=== PATIENT | male | born 1965 | race African-American/Black ===

== ENCOUNTER 2018-01-30 14:17 | Inpatient (IN) | payer OTHER ==
[2018-01-30 15:30] VITALS: BMI 214.3
--- NOTE | 2018-01-30 17:26 | HP ---
CIWA Score - CIWA Score Nausea/Vomitin-No Nausea/No Vomiting Muscle Tremors: 2 Anxiety: 1-Mildly Anxious Agitation: 2 Paroxysmal Sweats: No Perspiration Orientation: 2-Disoriented Date<2 days Tacttile Disturbances: 3-Moderate Itch/Numb/Burn Auditory Disturbances: 0-None Visual Disturbances: 0-None Headache: 2-Mild CIWA-Ar Total Score: 12 Admission ROS S - HPI Chief Complaint: ETOH withdrawal symptoms and crack/marijuana dependence. Allergies/Adverse Reactions: Allergies Allergy/AdvReac Type Severity Reaction Status Date / Time doxycycline Allergy Severe Verified 01/30/18 16:36 Fish Containing Products Allergy Severe Verified 01/30/18 16:36 History of Present Illness: Patient presents ETOH withdrawal symptoms and crack/marijuana dependence. Patient started drinking at age 2-3 pints of liquor daily. Last drink was last night. Patient denies hx of seizures but does have history of blackouts. Patient also smokes marijuana and crack since age 26. Last time he used crack was last night. Amount he uses varies. Last time he used marijuana was days ago. Patient attempted detox at [facility] 4 months ago. First attempt of detox here at [facility]. PMH includes asthma, depression and anxiety. Last SI/HI and suicide attempts. Exam Limitations: No Limitations - Ebola screening Have you traveled outside of the country in the last 21 days: No Have you had contact with anyone from an Ebola affected area: No Have you been sick,other than usual withdrawal symptoms: No Do you have a fever: No - Review of Systems Constitutional: Chills, Changes in sleep, Unintentional Wgt. Loss EENT: denies: Blurred Vision, Tearing, Hearing Loss Respiratory: denies: Cough, Shortness of Breath Cardiac: denies: Chest Pain, Palpitations GI: reports: Nausea, Poor Appetite, Poor Fluid Intake : reports: No Symptoms Reported Musculoskeletal: reports: Back Pain, Muscle Pain Integumentary: denies: Rash, Sweating Neuro: reports: Headache, Numbness, Tingling, Tremors Endocrine: reports: Unexplained Weight Loss. denies: Increased Urine Hematology: reports: No Symptoms Reported Psychiatric: reports: Anxious, Depressed Patient History - Patient Medical History Hx Asthma: No Hx Chronic Obstructive Pulmonary Disease (COPD): Yes (chronic bronchitis.) Hx Cancer: No Hx Cardiac Disorders: No Hx Congestive Heart Failure: No Hx Hypertension: No Hx Hypercholesterolemia: No Hx Pacemaker: No HX Cerebrovascular Accident: No Hx Seizures: No Hx Diabetes: No Hx Gastrointestinal Disorders: No Hx Liver Disease: No Hx Genitourinary Disorders: No Hx Sexually Transmitted Disorders: Yes (pt was tx for syphillis.) Hx Renal Disease (ESRD): No Hx Thyroid Disease: No Hx Human Immunodeficiency Virus (HIV): No Hx Hepatitis C: No Hx Depression: Yes Hx Suicide Attempt: No Hx Bipolar Disorder: No Hx Schizophrenia: No - Patient Surgical History Past Surgical History: Yes Hx Abdominal Surgery: Yes (hernia repair) Other Surgical History: R inguinal hernia repair. Anesthesia Reaction: No - PPD History Previous Implant?: Yes Documented Results: Negative w/o proof Implanted On Prior [facility] Admission?: No PPD to be Administered?: Yes - Smoking Cessation Smoking history: Current every day smoker Have you smoked in the past 12 months: Yes Aproximately how many cigarettes per day: 10 Hx Chewing Tobacco Use: No Initiated information on smoking cessation: Yes 'Breaking Loose' booklet given: 01/30/18 - Substance & Tx. History Hx Alcohol Use: Yes Hx Substance Use: Yes Substance Use Type: Alcohol, Cocaine, Marijuana Hx Substance Use Treatment: Yes - Substances Abused Alcohol Route: Oral Frequency: Daily Amount used: 3-4 22 oz beers Age of first use: 15 Date of Last Use: 01/29/18 Crack Route: Smoking Frequency: Daily Amount used: $25-50 Age of first use: 26 Date of Last Use: 01/29/18 Family Disease History - Family Disease History Family Disease History: Diabetes: Mother () Admission Physical Exam S - Vital Signs Vital Signs: Vital Signs - 24 hr 01/30/18 15:23 Temperature 98.0 F Pulse Rate 56 L Respiratory 18 Rate Blood Pressure 115/73 - Physical General Appearance: Yes: Thin, Tremorous, Anxious HEENTM: Yes: EOMI, Hearing grossly Normal, Normal ENT Inspection, Normocephalic , Normal Voice, WU, Pharynx Normal Respiratory: Yes: Chest Non-Tender, Lungs Clear, Normal Breath Sounds, No Respiratory Distress, No Accessory Muscle Use Neck: Yes: No masses,lesions,Nodules, Supple Breast: Yes: Breast Exam Deferred Cardiology: Yes: Regular Rhythm, Regular Rate, S1, S2 Abdominal: Yes: Normal Bowel Sounds, Non Tender, Soft Genitourinary: Yes: Within Normal Limits Back: Yes: Normal Inspection, Muscle Spasm Musculoskeletal: Yes: full range of Motion, Gait Steady, Back pain, Muscle Pain Extremities: Yes: Normal Inspection, Normal Range of Motion, Non-Tender, Tremors 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, Fully Oriented, Alert, Motor Strength 5/5, Depressed Affect Integumentary: Yes: Normal Color, Dry, Warm Lymphatic: Yes: Within Normal Limits - Diagnostic (1) Alcohol dependence with uncomplicated withdrawal Current Visit: Yes Status: Acute (2) Cocaine dependence Current Visit: Yes Status: Acute Qualifiers: Substance use status: uncomplicated Qualified Code(s): F14.20 - Cocaine dependence, uncomplicated (3) Nicotine dependence Current Visit: Yes Status: Acute Qualifiers: Nicotine product type: cigarettes (4) Depressed affect Current Visit: Yes Status: Suspected (5) Weight loss Current Visit: Yes Status: Acute (6) Marijuana dependence Current Visit: Yes Status: Acute Cleared for Admission [facility] - Detox or Rehab [facility] Level of Care: Medically Managed Detox Regimen/Protocol: Librium [facility] Breath Alcohol Content Breath Alcohol Content: 0 Urine Drug Screen - Results Drug Screen Negative: No Urine Drug Screen Results: BHARATH-Cocaine
[2018-01-30] MEDS ORDERED: chlordiazePOXIDE HCL 25 MG CAPSULE PO PRN (17:31)
[2018-01-30] MEDS ORDERED: IBUPROFEN 400 MG TABLET (FP) PO PRN (17:32)
[2018-01-30] MEDS ORDERED: LOPERAMIDE HCL 2 MG CAPSULE PO PRN (17:32)
[2018-01-30] MEDS ORDERED: P-EPHED 60MG/TRIPROLIDI 2.5MG TABLET PO PRN (17:32)
[2018-01-30] MEDS ORDERED: hydrOXYzine PAMOATE 50 MG CAPSULE (FP) PO PRN (17:32)
[2018-01-30] MEDS ORDERED: MENTHOL/PHENOL 1 EACH UD MM PRN (17:32)
[2018-01-30] MEDS ORDERED: guaiFENesin/D-METHORPHAN HB 10 ML UNIT-DOSE CUPS PO PRN (17:32)
[2018-01-30] MEDS ORDERED: ACETAMINOPHEN 325 MG TABLET (FP) PO PRN (17:32)
[2018-01-30] MEDS ORDERED: MAGNESIUM CITRATE 300 ML BOTTLE PO PRN (17:32)
[2018-01-30] MEDS ORDERED: MAGNESIUM HYDROX 2400MG/30ML ORAL SUSPENSION 30 ML CUP PO PRN (17:32)
[2018-01-30] MEDS ORDERED: MAG HYDROX/AL HYDROX/SIMETH 30 ML UNIT-DOSE CUP PO PRN (17:32)
[2018-01-30] MEDS ORDERED: chlordiazePOXIDE HCL 25 MG CAPSULE PO ONE (18:00)
[2018-01-30] MEDS: MELATONIN 5 MG TABLETS PO PRN (22:44)
[2018-01-30] MEDS: THIAMINE HCL 100 MG TABLET (FP) PO SCH (22:44)
[2018-01-30] MEDS: chlordiazePOXIDE HCL 25 MG CAPSULE PO SCH (22:44)
[2018-01-31 01:22] LABS: URINE APPEARANCE CLEAR; URINE BILIRUBIN NEGATIVE (<2.0 mg/dL); URINE COLOR YELLOW; URINE GLUCOSE (UA) NEGATIVE (NEGATIVE); URINE KETONE NEGATIVE (NEGATIVE); URINE LEUK ESTERASE NEGATIVE (NEGATIVE); URINE NITRITE NEGATIVE (NEGATIVE); URINE PROTEIN NEGATIVE (NEGATIVE); URINE UROBILINOGEN NEGATIVE mg/dL (0.2-1.0)
[2018-01-31] MEDS: chlordiazePOXIDE HCL 25 MG CAPSULE PO SCH ×4 (06:48→22:51)
[2018-01-31 10:02] LABS: HEMATOCRIT 36.5 % (35.4-49); HEMOGLOBIN 11.6 GM/dL (11.7-16.9); MCHC 31.9 g/dl (32.0-35.9); MEAN CELL VOLUME 81.5 fl (80-96); MEAN PLT VOLUME 9.3 fl (7.5-11.1); PLATELET COUNT 212 K/MM3 (134-434); RBC 4.48 M/mm3 (4.00-5.60); RDW 15.4 % (11.9-15.9); WHITE BLOOD COUNT 5.8 K/mm3 (4.0-10.0)
[2018-01-31 10:21] LABS: CHLORIDE 110 mmol/L (98-107); POTASSIUM 3.8 mmol/L (3.5-5.1); SODIUM 145 mmol/L (136-145)
[2018-01-31 10:42] LABS: ALK PHOS 57 U/L (45-117); ANION GAP 7 MMOL/L (8-16); BILIRUBIN,TOTAL 0.2 mg/dL (0.2-1.0); BLOOD UREA NITROGEN 18 mg/dL (7-18); CALCIUM 8.4 mg/dL (8.5-10.1); CO2 28 mmol/L (21-32); CREATININE 1.1 mg/dL (0.7-1.3); GLUCOSE,RANDOM 82 mg/dL (74-106); SGOT/AST 14 U/L (15-37); SGPT/ALT 23 U/L (12-78); TOT PROT 5.4 g/dl (6.4-8.2)
[2018-01-31] MEDS: PRENATAL VITAMINS W/ FOLIC ACID TABLET (FP) PO SCH (11:08)
[2018-01-31] MEDS ORDERED: ONDANSETRON *ODT* 4 MG TABLET SL PRN (14:14)
--- NOTE | 2018-01-31 14:51 | CONSULT ---
[facility] Psychiatric Consult - Data Date of interview: 01/31/18 Admission source: [facility] Identifying data: First admission to [facility] for this 52 y/o AA male seeking detox treatment on for alcohol,cannabis and cocaine (crack) dependence.Patient is ,no children,domiciled,unemployed and collecting unemployment benefits. Substance Abuse History: Confirmed by the patient in this interview.Smoking history: Current every day smoker. Have you smoked in the past 12 months: Yes. Aproximately how many cigarettes per day: 10. Hx Chewing Tobacco Use: No. Initiated information on smoking cessation: Yes. 'Breaking Loose' booklet given : 01/30/18. - Substance & Tx. History. Hx Alcohol Use: Yes. Hx Substance Use : Yes. Substance Use Type: Alcohol, Cocaine, Marijuana. Hx Substance Use Treatment: Yes. - Substances Abused. Alcohol. Route: Oral. Frequency: Daily. Amount used: 3-4 22 oz beers. Age of first use: 15. Date of Last Use: 01/29/18. Crack. Route: Smoking. Frequency: Daily. Amount used: $25-50. Age of first use: 26. Date of Last Use: 01/29/18 Medical History: COPD,antecedent of syphilis and a history of right inguinal herniorraphy. Psychiatric History: Patient reports a history of psychiatric hospitalizations but he remembers only his committment at [facility].Duiagnosed with MDD.Medications not recalled.No OPD care reported.Mr Sandoval denies history of suicide attempts. Physical/Sexual Abuse/Trauma History: No history. Additional Comment: Urine Drug Screen Results: BHARATH-Cocaine.Noted. Mental Status Exam - Mental Status Exam Alert and Oriented to: Time, Place, Person Cognitive Function: Good Patient Appearance: Well Groomed Mood: Nervous, Withdrawn Affect: Mood Congruent Patient Behavior: Sedated (mildly sedated,drowsy), Fatigued, Cooperative Speech Pattern: Delayed, Slurred Voice Loudness: Moderately Soft/Quiet Thought Process: Goal Oriented Thought Disorder: Not Present Hallucinations: Denies Suicidal Ideation: Denies Homicidal Ideation: Denies Insight/Judgement: Poor Sleep: Well Appetite: Good Muscle strength/Tone: Normal Gait/Station: Other (unsteady gait) Psychiatric Findings - Problem List ([place] 1, 2,3) (1) Alcohol dependence with uncomplicated withdrawal Current Visit: Yes Status: Acute (2) Cocaine dependence Current Visit: Yes Status: Acute Qualifiers: Substance use status: uncomplicated Qualified Code(s): F14.20 - Cocaine dependence, uncomplicated (3) Marijuana dependence Current Visit: Yes Status: Acute (4) Nicotine dependence Current Visit: Yes Status: Acute Qualifiers: Nicotine product type: cigarettes - Initial Treatment Plan Initial Treatment Plan: Psychoeducation.Detoxification.Falls precautions.Observation.
--- NOTE | 2018-01-31 16:10 | PN ---
[facility] CIWA - CIWA Score Nausea/Vomitin Muscle Tremors: 3 Anxiety: 3 Agitation: 1-Slight > Activity Paroxysmal Sweats: No Perspiration Orientation: 2-Disoriented Date<2 days Tacttile Disturbances: 0-None Auditory Disturbances: 2-Mild Harshness/Frighten Visual Disturbances: 2-Mild Sensitivity Headache: 0-None Present CIWA-Ar Total Score: 16 [facility] Progress Note (SOAP) Subjective: Interrupted Sleep, Tremors, Nausea, Fatigue. Objective: PATIENT A & O X 2 (UNCERTAIN ABOUT CURRENT DAY / DATE). PATIENT OBSERVED AMBULATING ON UNIT. NO ACUTE DISTRESS. 01/31/18 16:09 Vital Signs Temperature 97.4 F L 01/31/18 14:19 Pulse Rate 54 L 01/31/18 14:19 Respiratory Rate 18 01/31/18 14:19 Blood Pressure 109/72 01/31/18 14:19 O2 Sat by Pulse Oximetry (%) Laboratory Tests 01/31/18 01/31/18 01/31/18 00:03 08:00 08:00 WBC 5.8 RBC 4.48 Hgb 11.6 L Hct 36.5 MCV 81.5 MCH 26.0 MCHC 31.9 L RDW 15.4 Plt Count 212 MPV 9.3 Sodium 145 Potassium 3.8 Chloride 110 H Carbon Dioxide 28 Anion Gap 7 L BUN 18 Creatinine 1.1 Creat Clearance w eGFR > 60 Random Glucose 82 Calcium 8.4 L Total Bilirubin 0.2 AST 14 L ALT 23 Alkaline Phosphatase 57 Total Protein 5.4 L Albumin 3.0 L Urine Color Yellow Urine Appearance Clear Urine pH 5.0 Ur Specific [place] 1.017 Urine Protein Negative Urine Glucose (UA) Negative Urine Ketones Negative Urine Blood Negative Urine Nitrite Negative Urine Bilirubin Negative Urine Urobilinogen Negative Ur Leukocyte Esterase Negative RPR Titer 01/31/18 08:00 WBC RBC Hgb Hct MCV MCH MCHC RDW Plt Count MPV Sodium Potassium Chloride Carbon Dioxide Anion Gap BUN Creatinine Creat Clearance w eGFR Random Glucose Calcium Total Bilirubin AST ALT Alkaline Phosphatase Total Protein Albumin Urine Color Urine Appearance Urine pH Ur Specific [place] Urine Protein Urine Glucose (UA) Urine Ketones Urine Blood Urine Nitrite Urine Bilirubin Urine Urobilinogen Ur Leukocyte Esterase RPR Titer Nonreactive LABS NOTED. Assessment: 01/31/18 16:09 WITHDRAWAL SYMPTOMS. Plan: CONTINUE DETOX. INCREASE DAILY PO FLUID INTAKE. PRN ZOFRAN SL FOR NAUSEA.
--- NOTE | 2018-01-31 19:08 | EKG ---
Test Reason : Blood Pressure : / mmHG Vent. Rate : 047 BPM Atrial Rate : 047 BPM P-R Int : 184 ms QRS Dur : 082 ms QT Int : 426 ms P-R-T Axes : 063 026 021 degrees QTc Int : 377 ms SINUS BRADYCARDIA OTHERWISE NORMAL ECG NO PREVIOUS ECGS AVAILABLE Confirmed by ANTONIO SHABAZZ MD ([id number]) on 01/31/2018 7:07:53 PM Referred By: Confirmed By:ANTONIO SHABAZZ MD
[2018-01-31] MEDS ORDERED: RANITIDINE HCL 150 MG TABLET (FP) PO ONE (21:41)
[2018-01-31] MEDS: THIAMINE HCL 100 MG TABLET (FP) PO SCH (22:51)
[2018-02-01] MEDS: chlordiazePOXIDE HCL 25 MG CAPSULE PO SCH ×3 (07:10→17:58)
[2018-02-01] MEDS: PRENATAL VITAMINS W/ FOLIC ACID TABLET (FP) PO SCH (10:31)
--- NOTE | 2018-02-01 14:27 | PN ---
S CIWA - CIWA Score Nausea/Vomitin Muscle Tremors: 3 Anxiety: 3 Agitation: 3 Paroxysmal Sweats: 3 Orientation: 0-Oriented Tacttile Disturbances: 1-Very Mild Itch/Numbness Auditory Disturbances: 0-None Visual Disturbances: 0-None Headache: 1-Very Mild CIWA-Ar Total Score: 16 [facility] Progress Note (SOAP) Subjective: Sweating, interrupted sleep Objective: 02/01/18 14:26 Last Vital Signs Temp Pulse Resp BP Pulse Ox 98.4 F 86 18 100/72 02/01/18 09:36 02/01/18 09:36 02/01/18 09:36 02/01/18 09:36 Laboratory Tests 01/31/18 01/31/18 01/31/18 00:03 08:00 08:00 WBC 5.8 RBC 4.48 Hgb 11.6 L Hct 36.5 MCV 81.5 MCH 26.0 MCHC 31.9 L RDW 15.4 Plt Count 212 MPV 9.3 Sodium 145 Potassium 3.8 Chloride 110 H Carbon Dioxide 28 Anion Gap 7 L BUN 18 Creatinine 1.1 Creat Clearance w eGFR > 60 Random Glucose 82 Calcium 8.4 L Total Bilirubin 0.2 AST 14 L ALT 23 Alkaline Phosphatase 57 Total Protein 5.4 L Albumin 3.0 L Urine Color Yellow Urine Appearance Clear Urine pH 5.0 Ur Specific [place] 1.017 Urine Protein Negative Urine Glucose (UA) Negative Urine Ketones Negative Urine Blood Negative Urine Nitrite Negative Urine Bilirubin Negative Urine Urobilinogen Negative Ur Leukocyte Esterase Negative RPR Titer 01/31/18 08:00 WBC RBC Hgb Hct MCV MCH MCHC RDW Plt Count MPV Sodium Potassium Chloride Carbon Dioxide Anion Gap BUN Creatinine Creat Clearance w eGFR Random Glucose Calcium Total Bilirubin AST ALT Alkaline Phosphatase Total Protein Albumin Urine Color Urine Appearance Urine pH Ur Specific [place] Urine Protein Urine Glucose (UA) Urine Ketones Urine Blood Urine Nitrite Urine Bilirubin Urine Urobilinogen Ur Leukocyte Esterase RPR Titer Nonreactive Labs reviewed Assessment: 02/01/18 14:26 Withdrawal symptoms Plan: Continue detox Encouraged PO water hydration
[2018-02-01] MEDS: NICOTINE POLACRILEX 2 MG GUM BC PRN (17:59)
[2018-02-01] MEDS: THIAMINE HCL 100 MG TABLET (FP) PO SCH (22:27)
[2018-02-01] MEDS: MELATONIN 5 MG TABLETS PO PRN (22:27)
[2018-02-01] MEDS: chlordiazePOXIDE 5 MG CAPSULE PO SCH (22:28)
[2018-02-02] MEDS: chlordiazePOXIDE 5 MG CAPSULE PO SCH ×3 (05:39→18:02)
[2018-02-02] MEDS: PRENATAL VITAMINS W/ FOLIC ACID TABLET (FP) PO SCH (10:14)
[2018-02-02] MEDS: NICOTINE POLACRILEX 2 MG GUM BC PRN ×2 (10:16→14:13)
--- NOTE | 2018-02-02 13:59 | PN ---
[facility] Progress Note (SOAP) Subjective: sweats shakes Sleep disturbance Objective: 02/02/18 13:57 Sleeping in room Arousable to verbal stimuli Vital Signs Temperature 98.1 F 02/02/18 10:03 Pulse Rate 59 L 02/02/18 10:03 Respiratory Rate 18 02/02/18 10:03 Blood Pressure 110/64 02/02/18 10:03 O2 Sat by Pulse Oximetry (%) Laboratory Last Values WBC 5.8 K/mm3 (4.0-10.0) 01/31/18 08:00 RBC 4.48 M/mm3 (4.00-5.60) 01/31/18 08:00 Hgb 11.6 GM/dL (11.7-16.9) L 01/31/18 08:00 Hct 36.5 % (35.4-49) 01/31/18 08:00 MCV 81.5 fl (80-96) 01/31/18 08:00 MCH 26.0 pg (25.7-33.7) 01/31/18 08:00 MCHC 31.9 g/dl (32.0-35.9) L 01/31/18 08:00 RDW 15.4 % (11.9-15.9) 01/31/18 08:00 Plt Count 212 K/MM3 (134-434) 01/31/18 08:00 MPV 9.3 fl (7.5-11.1) 01/31/18 08:00 Sodium 145 mmol/L (136-145) 01/31/18 08:00 Potassium 3.8 mmol/L (3.5-5.1) 01/31/18 08:00 Chloride 110 mmol/L (98-107) H 01/31/18 08:00 Carbon Dioxide 28 mmol/L (21-32) 01/31/18 08:00 Anion Gap 7 MMOL/L (8-16) L 01/31/18 08:00 BUN 18 mg/dL (7-18) 01/31/18 08:00 Creatinine 1.1 mg/dL (0.7-1.3) 01/31/18 08:00 Creat Clearance w eGFR > 60 (>60) 01/31/18 08:00 Random Glucose 82 mg/dL (74-106) 01/31/18 08:00 Calcium 8.4 mg/dL (8.5-10.1) L 01/31/18 08:00 Total Bilirubin 0.2 mg/dL (0.2-1.0) 01/31/18 08:00 AST 14 U/L (15-37) L 01/31/18 08:00 ALT 23 U/L (12-78) 01/31/18 08:00 Alkaline Phosphatase 57 U/L (45-117) 01/31/18 08:00 Total Protein 5.4 g/dl (6.4-8.2) L 01/31/18 08:00 Albumin 3.0 g/dl (3.4-5.0) L 01/31/18 08:00 Urine Color Yellow 01/31/18 00:03 Urine Appearance Clear 01/31/18 00:03 Urine pH 5.0 (5.0-8.0) 01/31/18 00:03 Ur Specific [place] 1.017 (1.001-1.035) 01/31/18 00:03 Urine Protein Negative (NEGATIVE) 01/31/18 00:03 Urine Glucose (UA) Negative (NEGATIVE) 01/31/18 00:03 Urine Ketones Negative (NEGATIVE) 01/31/18 00:03 Urine Blood Negative (NEGATIVE) 01/31/18 00:03 Urine Nitrite Negative (NEGATIVE) 01/31/18 00:03 Urine Bilirubin Negative (<2.0 mg/dL) 01/31/18 00:03 Urine Urobilinogen Negative mg/dL (0.2-1.0) 01/31/18 00:03 Ur Leukocyte Esterase Negative (NEGATIVE) 01/31/18 00:03 RPR Titer Nonreactive (NONREACTIVE) 01/31/18 08:00 Assessment: 02/02/18 13:59 withdrawal sx Plan: continue detox
[2018-02-02] MEDS: MELATONIN 5 MG TABLETS PO PRN (22:15)
[2018-02-02] MEDS: THIAMINE HCL 100 MG TABLET (FP) PO SCH (22:15)
[2018-02-02] MEDS: chlordiazePOXIDE HCL 10 MG CAPSULE PO SCH (22:16)
[2018-02-03] MEDS: chlordiazePOXIDE HCL 10 MG CAPSULE PO SCH (05:47)
[2018-02-03 06:05] VITALS: BP 110/60; PULSE 54; TEMP 97.5
--- NOTE | 2018-02-03 16:33 | PN ---
[facility] Progress Note (SOAP) Subjective: Pre-Discharge medical assessment unable to be done due to the fact that Patient Left Detox Unit early in AM prior to arrival of GEOS[employer]IAL [employer]S INTEGRATOR. Objective: 02/03/18 16:32 Vital Signs Temperature 97.5 F L 02/03/18 06:05 Pulse Rate 54 L 02/03/18 06:05 Respiratory Rate 18 02/03/18 06:05 Blood Pressure 110/60 02/03/18 06:05 O2 Sat by Pulse Oximetry (%) Laboratory Tests 01/31/18 01/31/18 01/31/18 00:03 08:00 08:00 WBC 5.8 RBC 4.48 Hgb 11.6 L Hct 36.5 MCV 81.5 MCH 26.0 MCHC 31.9 L RDW 15.4 Plt Count 212 MPV 9.3 Sodium 145 Potassium 3.8 Chloride 110 H Carbon Dioxide 28 Anion Gap 7 L BUN 18 Creatinine 1.1 Creat Clearance w eGFR > 60 Random Glucose 82 Calcium 8.4 L Total Bilirubin 0.2 AST 14 L ALT 23 Alkaline Phosphatase 57 Total Protein 5.4 L Albumin 3.0 L Urine Color Yellow Urine Appearance Clear Urine pH 5.0 Ur Specific [place] 1.017 Urine Protein Negative Urine Glucose (UA) Negative Urine Ketones Negative Urine Blood Negative Urine Nitrite Negative Urine Bilirubin Negative Urine Urobilinogen Negative Ur Leukocyte Esterase Negative RPR Titer 01/31/18 08:00 WBC RBC Hgb Hct MCV MCH MCHC RDW Plt Count MPV Sodium Potassium Chloride Carbon Dioxide Anion Gap BUN Creatinine Creat Clearance w eGFR Random Glucose Calcium Total Bilirubin AST ALT Alkaline Phosphatase Total Protein Albumin Urine Color Urine Appearance Urine pH Ur Specific [place] Urine Protein Urine Glucose (UA) Urine Ketones Urine Blood Urine Nitrite Urine Bilirubin Urine Urobilinogen Ur Leukocyte Esterase RPR Titer Nonreactive LABS NOTED. Assessment: 02/03/18 16:32 COMPLETION OF DETOX REGIMEN. Plan: PATIENT SCHEDULED FOR DISCHARGE FROM DETOX UNIT TODAY.
--- NOTE | 2018-02-03 16:36 | DS ---
[facility] Detox Discharge Summary Admission Date: 01/30/18 Discharge Date: 02/03/18 - History Present History: Alcohol Dependence, Cocaine Dependence Additional Comments: PATIENT GOING TO [facility] ([place] FOR AFTERCARE. Pertinent Past History: Weight Loss, Nicotine Dependence, C.O.P.D. (Chronic Bronchitis), History of Depression. - Physical Exam Results Vital Signs: Vital Signs Temperature 97.5 F L 02/03/18 06:05 Pulse Rate 54 L 02/03/18 06:05 Respiratory Rate 18 02/03/18 06:05 Blood Pressure 110/60 02/03/18 06:05 O2 Sat by Pulse Oximetry (%) Pertinent Admission Physical Exam Findings: WITHDRAWAL SYMPTOMS. Laboratory Tests 01/31/18 01/31/18 01/31/18 00:03 08:00 08:00 WBC 5.8 RBC 4.48 Hgb 11.6 L Hct 36.5 MCV 81.5 MCH 26.0 MCHC 31.9 L RDW 15.4 Plt Count 212 MPV 9.3 Sodium 145 Potassium 3.8 Chloride 110 H Carbon Dioxide 28 Anion Gap 7 L BUN 18 Creatinine 1.1 Creat Clearance w eGFR > 60 Random Glucose 82 Calcium 8.4 L Total Bilirubin 0.2 AST 14 L ALT 23 Alkaline Phosphatase 57 Total Protein 5.4 L Albumin 3.0 L Urine Color Yellow Urine Appearance Clear Urine pH 5.0 Ur Specific [place] 1.017 Urine Protein Negative Urine Glucose (UA) Negative Urine Ketones Negative Urine Blood Negative Urine Nitrite Negative Urine Bilirubin Negative Urine Urobilinogen Negative Ur Leukocyte Esterase Negative RPR Titer 01/31/18 08:00 WBC RBC Hgb Hct MCV MCH MCHC RDW Plt Count MPV Sodium Potassium Chloride Carbon Dioxide Anion Gap BUN Creatinine Creat Clearance w eGFR Random Glucose Calcium Total Bilirubin AST ALT Alkaline Phosphatase Total Protein Albumin Urine Color Urine Appearance Urine pH Ur Specific [place] Urine Protein Urine Glucose (UA) Urine Ketones Urine Blood Urine Nitrite Urine Bilirubin Urine Urobilinogen Ur Leukocyte Esterase RPR Titer Nonreactive LABS NOTED. - Treatment Hospital Course: Detox Protocol Followed, Detoxed Safely, Responded well, Discharged Condition Good Patient has Accepted a Rehab Referral to: PATIENT GOING TO [facility] ([place] - Medication Discharge Medications: Ambulatory Orders NK [No Known Home Medication] 01/30/18 - Diagnosis (1) Alcohol dependence with uncomplicated withdrawal Status: Acute (2) Cocaine dependence Status: Chronic Qualifiers: Substance use status: uncomplicated Qualified Code(s): F14.20 - Cocaine dependence, uncomplicated (3) Marijuana dependence Status: Acute (4) Nicotine dependence Status: Chronic Qualifiers: Nicotine product type: cigarettes Substance use status: uncomplicated Qualified Code(s): F17.210 - Nicotine dependence, cigarettes, uncomplicated (5) Weight loss Status: Acute (6) Depressed affect Status: Suspected - AMA Did Patient Leave Against Medical Advice: No
== END 2018-02-03 07:05 | disposition home or self-care (01) | DRG 774 ==
LOC: YASAS 14:17 → Y3N 17:13
PROVIDERS: ADMIT Surgery; ATTEND Surgery
PROC: HZ2ZZZZ Detoxification Services for Substance Abuse Treatment (ICD-10-PCS; principal; 2018-01-30)
DX: F10.230 Alcohol dependence with withdrawal, uncomplicated (principal); F14.20 Cocaine dependence, uncomplicated; F12.20 Cannabis dependence, uncomplicated; F17.210 Nicotine dependence, cigarettes, uncomplicated; R45.89 Other symptoms and signs involving emotional state; R63.4 Abnormal weight loss; Z68.21 Body mass index [BMI] 21.0-21.9, adult; J44.9 Chronic obstructive pulmonary disease, unspecified
CPT/HCPCS: 36415; 80053; 81003; 85027; 86593; 93005; 93010

== ENCOUNTER 2022-05-01 09:16 | Inpatient (IN) | payer OTHER ==
[2022-05-01 10:18] VITALS: BMI 23.1
[2022-05-01] MEDS ORDERED: chlordiazePOXIDE HCL 25 MG CAPSULE PO PRN (10:36)
[2022-05-01] MEDS ORDERED: ONDANSETRON *ODT* 4 MG TABLET SL PRN (10:36)
[2022-05-01] MEDS ORDERED: hydrOXYzine PAMOATE 25 MG CAPSULE (FP) PO PRN (10:36)
[2022-05-01] MEDS ORDERED: MAGNESIUM HYDROX 2400MG/30ML ORAL SUSPENSION 30 ML CUP PO PRN (10:36)
[2022-05-01] MEDS ORDERED: P-EPHED 60MG/TRIPROLIDI 2.5MG TABLET PO PRN (10:36)
[2022-05-01] MEDS ORDERED: ACETAMINOPHEN 325 MG TABLET (FP) PO PRN ×2 (10:36)
[2022-05-01] MEDS ORDERED: LOPERAMIDE HCL 2 MG CAPSULE PO PRN (10:36)
[2022-05-01] MEDS ORDERED: IBUPROFEN 400 MG TABLET (FP) PO PRN (10:36)
[2022-05-01] MEDS ORDERED: POLYETHYLENE GLYCOL (HEALTHYLAX) 3350 17 GM PACKET PO PRN (10:36)
[2022-05-01] MEDS ORDERED: NICOTINE POLACRILEX 4 MG GUM BUC PRN (10:36)
[2022-05-01] MEDS ORDERED: NICOTINE 10 MG CARTRIDGE (INHALER) IH PRN (10:36)
[2022-05-01] MEDS ORDERED: IBUPROFEN 600 MG TABLET (FP) PO PRN (10:36)
[2022-05-01] MEDS ORDERED: NICOTINE 21 MG/24 HOURS TOPICAL PATCH TD PRN (10:36)
[2022-05-01] MEDS ORDERED: BENZOCAINE/MENTHOL (CHLORASEPTIC ) LOZENGE MM PRN (10:36)
[2022-05-01] MEDS ORDERED: DICYCLOMINE HCL 10 MG CAPSULE PO PRN (10:36)
[2022-05-01] MEDS ORDERED: BISMUTH SUBSALICYLATE 262 MG/15 ML BTL PO PRN (10:36)
[2022-05-01] MEDS ORDERED: MAG HYDROX/AL HYDROX/SIMETH 30 ML UNIT-DOSE CUP PO PRN (10:36)
[2022-05-01] MEDS ORDERED: PRENATAL VITAMINS W/ FOLIC ACID TABLET (FP) PO SCH (10:45)
[2022-05-01] MEDS ORDERED: chlordiazePOXIDE HCL 25 MG CAPSULE ONE (11:13)
[2022-05-01] MEDS: METHOCARBAMOL 500 MG TABLET PO PRN (11:52)
[2022-05-01] MEDS ORDERED: METHOCARBAMOL 500 MG TABLET ONE (11:53)
[2022-05-01] MEDS ORDERED: chlordiazePOXIDE HCL 25 MG CAPSULE PO ONE (11:54)
[2022-05-01] MEDS: chlordiazePOXIDE HCL 25 MG CAPSULE PO SCH ×2 (18:23→22:56)
[2022-05-01] MEDS ORDERED: MELATONIN 5 MG TABLETS PO SCH (22:00)
[2022-05-01] MEDS ORDERED: SUVOREXANT 10 MG TABLET PO PRN (22:00)
[2022-05-01] MEDS: THIAMINE HCL 100 MG TABLET (FP) PO SCH (22:42)
[2022-05-02] MEDS: chlordiazePOXIDE HCL 25 MG CAPSULE PO SCH ×4 (05:39→22:55)
[2022-05-02] MEDS: PRENATAL VITAMINS W/ FOLIC ACID TABLET (FP) PO SCH (11:10)
[2022-05-02] MEDS: METHOCARBAMOL 500 MG TABLET PO PRN (17:30)
[2022-05-02] MEDS: THIAMINE HCL 100 MG TABLET (FP) PO SCH (22:55)
[2022-05-03] MEDS: chlordiazePOXIDE HCL 25 MG CAPSULE PO SCH ×4 (05:14→22:43)
[2022-05-03] MEDS: PRENATAL VITAMINS W/ FOLIC ACID TABLET (FP) PO SCH (10:37)
[2022-05-03 11:13] LABS: HEMATOCRIT 38.8 % (35.4-49); HEMOGLOBIN 12.2 GM/dL (11.7-16.9); MCH 25.8 pg (25.7-33.7); MCHC 31.3 g/dl (32.0-35.9); MEAN CELL VOLUME 82.4 fl (80-96); PLATELET COUNT 263 10^3/uL (134-434); RBC 4.71 M/mm3 (4.00-5.60); RDW 15.6 % (11.9-15.9); WHITE BLOOD COUNT 5.6 K/mm3 (4.0-10.0)
[2022-05-03 11:22] LABS: ALBUMIN 3.3 g/dl (3.4-5.0); BLOOD UREA NITROGEN 17.7 mg/dL (7-18)
[2022-05-03 11:25] LABS: CREATININE 1.4 mg/dL (0.55-1.3)
[2022-05-03 11:26] LABS: BILIRUBIN,TOTAL 0.5 mg/dL (0.2-1); TOT PROT 6.1 g/dl (6.4-8.2)
[2022-05-03] MEDS: THIAMINE HCL 100 MG TABLET (FP) PO SCH (22:43)
[2022-05-04] MEDS ORDERED: chlordiazePOXIDE HCL 10 MG CAPSULE PO PRN
[2022-05-04] MEDS ORDERED: chlordiazePOXIDE HCL 10 MG CAPSULE PO SCH (05:00)
[2022-05-04 08:46] VITALS: BP 125/69; PULSE 69; RESP 17; TEMP 97.3
[2022-05-05] MEDS ORDERED: chlordiazePOXIDE HCL 10 MG CAPSULE PO SCH (05:00)
[2022-05-06] MEDS ORDERED: chlordiazePOXIDE HCL 10 MG CAPSULE PO ONE (05:00)
== END 2022-05-04 09:10 | disposition left against medical advice (07) | DRG 770 ==
LOC: YASAS 09:16 → Y6N 11:29
PROVIDERS: ADMIT Allergy & Immunology; ATTEND Surgery
PROC: HZ2ZZZZ Detoxification Services for Substance Abuse Treatment (ICD-10-PCS; principal; 2022-05-01)
DX: F10.230 Alcohol dependence with withdrawal, uncomplicated (principal); F14.20 Cocaine dependence, uncomplicated; F12.20 Cannabis dependence, uncomplicated; F17.210 Nicotine dependence, cigarettes, uncomplicated; F31.81 Bipolar II disorder; F25.1 Schizoaffective disorder, depressive type; J44.9 Chronic obstructive pulmonary disease, unspecified; Z85.46 Personal history of malignant neoplasm of prostate; Z86.19 Personal history of other infectious and parasitic diseases; Z88.1 Allergy status to other antibiotic agents; Z91.013 Allergy to seafood
CPT/HCPCS: 36415; 80053; 85027; 86593; 86780; C9803-CS; U0003; U0005

== ENCOUNTER 2022-08-15 11:17 | Inpatient (IN) | payer OTHER ==
[2022-08-15 11:59] VITALS: BMI 24.5
[2022-08-15] MEDS ORDERED: IBUPROFEN 600 MG TABLET (FP) PO PRN (12:43)
[2022-08-15] MEDS ORDERED: NALOXONE HCL (KLOXXADO) 8 MG SPRAY NS PRN (12:43)
[2022-08-15] MEDS ORDERED: POLYETHYLENE GLYCOL (HEALTHYLAX) 3350 17 GM PACKET PO PRN (12:43)
[2022-08-15] MEDS ORDERED: BENZOCAINE/MENTHOL (CHLORASEPTIC ) LOZENGE MM PRN (12:43)
[2022-08-15] MEDS ORDERED: NICOTINE 10 MG CARTRIDGE (INHALER) IH PRN (12:43)
[2022-08-15] MEDS ORDERED: hydrOXYzine PAMOATE 25 MG CAPSULE (FP) PO PRN (12:43)
[2022-08-15] MEDS ORDERED: diazePAM 5 MG TABLET PO PRN (12:43)
[2022-08-15] MEDS ORDERED: MAGNESIUM HYDROX 2400MG/30ML ORAL SUSPENSION 30 ML CUP PO PRN (12:43)
[2022-08-15] MEDS ORDERED: ACETAMINOPHEN 325 MG TABLET (FP) PO PRN ×2 (12:43)
[2022-08-15] MEDS ORDERED: LOPERAMIDE HCL 2 MG CAPSULE PO PRN (12:43)
[2022-08-15] MEDS ORDERED: MAG HYDROX/AL HYDROX/SIMETH 30 ML UNIT-DOSE CUP PO PRN (12:43)
[2022-08-15] MEDS ORDERED: DICYCLOMINE HCL 10 MG CAPSULE PO PRN (12:43)
[2022-08-15] MEDS ORDERED: BISMUTH SUBSALICYLATE 524 MG/30 ML PO PRN (12:43)
[2022-08-15] MEDS ORDERED: IBUPROFEN 400 MG TABLET (FP) PO PRN (12:43)
[2022-08-15] MEDS ORDERED: ONDANSETRON *ODT* 4 MG TABLET SL PRN (12:43)
[2022-08-15] MEDS ORDERED: NICOTINE 14 MG/24 HOURS TOPICAL PATCH TD ONE (15:02)
[2022-08-15] MEDS ORDERED: PRENATAL VITAMINS W/ FOLIC ACID TABLET (FP) PO ONE (15:03)
[2022-08-15] MEDS: NICOTINE 14 MG/24 HOURS TOPICAL PATCH TD SCH (15:07)
[2022-08-15] MEDS: PRENATAL VITAMINS W/ FOLIC ACID TABLET (FP) PO SCH (15:07)
[2022-08-15] MEDS: METHOCARBAMOL 500 MG TABLET PO PRN (15:21)
[2022-08-15] MEDS: diazePAM 5 MG TABLET PO SCH ×2 (17:37→22:28)
[2022-08-15] MEDS: MELATONIN 5 MG TABLETS PO SCH (22:28)
[2022-08-15] MEDS: THIAMINE HCL 100 MG TABLET (FP) PO SCH (22:28)
[2022-08-16] MEDS: diazePAM 5 MG TABLET PO SCH ×4 (05:50→22:51)
[2022-08-16] MEDS: PRENATAL VITAMINS W/ FOLIC ACID TABLET (FP) PO SCH (10:07)
[2022-08-16] MEDS: NICOTINE 14 MG/24 HOURS TOPICAL PATCH TD SCH (10:10)
[2022-08-16 11:02] LABS: BLOOD UREA NITROGEN 21.9 mg/dL (7-18); CALCIUM 8.3 mg/dL (8.5-10.1)
[2022-08-16 11:03] LABS: ALBUMIN 3.2 g/dl (3.4-5.0)
[2022-08-16 11:05] LABS: CREATININE 1.2 mg/dL (0.55-1.3); HEMOGLOBIN 11.8 GM/dL (11.7-16.9); MCH 26.5 pg (25.7-33.7); MCHC 32.1 g/dl (32.0-35.9); MEAN CELL VOLUME 82.7 fl (80-96); MEAN PLT VOLUME 8.8 fl (7.5-11.1); PLATELET COUNT 256 10^3/uL (134-434); RBC 4.47 M/mm3 (4.00-5.60); RDW 15.8 % (11.9-15.9); WHITE BLOOD COUNT 6.3 K/mm3 (4.0-10.0)
[2022-08-16 11:07] LABS: BILIRUBIN,TOTAL 0.4 mg/dL (0.2-1); TOT PROT 5.9 g/dl (6.4-8.2)
[2022-08-16] MEDS: MELATONIN 5 MG TABLETS PO SCH (22:50)
[2022-08-16] MEDS: THIAMINE HCL 100 MG TABLET (FP) PO SCH (22:50)
[2022-08-17] MEDS: diazePAM 5 MG TABLET PO SCH ×3 (06:29→22:48)
[2022-08-17] MEDS: PRENATAL VITAMINS W/ FOLIC ACID TABLET (FP) PO SCH (10:45)
[2022-08-17] MEDS: NICOTINE 14 MG/24 HOURS TOPICAL PATCH TD SCH (10:45)
[2022-08-17] MEDS: LACTULOSE 20 GM/30 ML UDC (FOR ORAL USE ONLY) PO SCH ×2 (13:32→22:47)
[2022-08-17] MEDS: METHOCARBAMOL 500 MG TABLET PO PRN (17:51)
[2022-08-17 17:55] VITALS: RESP 18
[2022-08-17] MEDS: MELATONIN 5 MG TABLETS PO SCH (22:47)
[2022-08-17] MEDS: THIAMINE HCL 100 MG TABLET (FP) PO SCH (22:48)
[2022-08-18] MEDS ORDERED: diazePAM 5 MG TABLET PO SCH (06:00)
[2022-08-18] MEDS: LACTULOSE 20 GM/30 ML UDC (FOR ORAL USE ONLY) PO SCH ×2 (06:21→13:25)
[2022-08-18 06:36] VITALS: BP 114/76; PULSE 69; TEMP 97.4
[2022-08-18] MEDS: NICOTINE 14 MG/24 HOURS TOPICAL PATCH TD SCH (10:58)
[2022-08-18] MEDS: PRENATAL VITAMINS W/ FOLIC ACID TABLET (FP) PO SCH (10:58)
[2022-08-19] MEDS ORDERED: diazePAM 5 MG TABLET PO ONE (06:00)
== END 2022-08-18 15:26 | disposition home or self-care (01) | DRG 774 ==
LOC: YASAS 11:17 → Y6N 13:57
PROVIDERS: ADMIT Allergy & Immunology; ATTEND Surgery
PROC: HZ2ZZZZ Detoxification Services for Substance Abuse Treatment (ICD-10-PCS; principal; 2022-08-15)
DX: F10.20 Alcohol dependence, uncomplicated (principal); F14.20 Cocaine dependence, uncomplicated; F12.20 Cannabis dependence, uncomplicated; F17.210 Nicotine dependence, cigarettes, uncomplicated; F10.282 Alcohol dependence with alcohol-induced sleep disorder; F10.24 Alcohol dependence with alcohol-induced mood disorder; F25.1 Schizoaffective disorder, depressive type; F32.A Depression, unspecified; F90.9 Attention-deficit hyperactivity disorder, unspecified type; J44.9 Chronic obstructive pulmonary disease, unspecified; Z85.46 Personal history of malignant neoplasm of prostate; Z90.79 Acquired absence of other genital organ(s); Z86.19 Personal history of other infectious and parasitic diseases; Z88.1 Allergy status to other antibiotic agents; Z91.013 Allergy to seafood
CPT/HCPCS: 36415; 80053; 82140; 85027; 86593; 86780; 87811; C9803-CS; U0003; U0005

== ENCOUNTER 2023-01-15 11:43 | Inpatient (IN) | payer OTHER ==
[2023-01-15 12:09] VITALS: BMI 21.9
[2023-01-15] MEDS ORDERED: NALOXONE HCL (KLOXXADO) 8 MG SPRAY NS PRN (13:48)
[2023-01-15] MEDS ORDERED: ACETAMINOPHEN 325 MG TABLET (FP) PO PRN (13:48)
[2023-01-15] MEDS ORDERED: DICYCLOMINE HCL 10 MG CAPSULE PO PRN (13:48)
[2023-01-15] MEDS ORDERED: MAGNESIUM HYDROX 2400MG/30ML ORAL SUSPENSION 30 ML CUP PO PRN (13:48)
[2023-01-15] MEDS ORDERED: BISMUTH SUBSALICYLATE 262 MG/15 ML BTL PO PRN (13:48)
[2023-01-15] MEDS ORDERED: NICOTINE POLACRILEX 2 MG GUM BUC PRN (13:48)
[2023-01-15] MEDS ORDERED: MAG HYDROX/AL HYDROX/SIMETH 30 ML UNIT-DOSE CUP PO PRN (13:48)
[2023-01-15] MEDS ORDERED: POLYETHYLENE GLYCOL (HEALTHYLAX) 3350 17 GM PACKET PO PRN (13:48)
[2023-01-15] MEDS ORDERED: METHOCARBAMOL 500 MG TABLET PO PRN (13:48)
[2023-01-15] MEDS ORDERED: IBUPROFEN 400 MG TABLET (FP) PO PRN (13:48)
[2023-01-15] MEDS ORDERED: ONDANSETRON *ODT* 4 MG TABLET SL PRN (13:48)
[2023-01-15] MEDS ORDERED: guaiFENesin 600 MG TABLET.ER (FP) PO PRN (13:48)
[2023-01-15] MEDS ORDERED: BENZONATATE 200 MG CAPSULE PO PRN (13:48)
[2023-01-15] MEDS ORDERED: IBUPROFEN 600 MG TABLET (FP) PO PRN (13:48)
[2023-01-15] MEDS ORDERED: BENZOCAINE/MENTHOL (CHLORASEPTIC ) LOZENGE MM PRN (13:48)
[2023-01-15] MEDS ORDERED: LOPERAMIDE HCL 2 MG CAPSULE PO PRN (13:48)
[2023-01-15] MEDS ORDERED: hydrOXYzine PAMOATE 25 MG CAPSULE (FP) PO PRN (13:48)
[2023-01-15] MEDS ORDERED: NALOXONE HCL 0.4 MG/ML VIAL IM PRN (13:48)
[2023-01-15] MEDS ORDERED: chlordiazePOXIDE HCL 25 MG CAPSULE PO PRN (13:54)
[2023-01-15] MEDS: chlordiazePOXIDE HCL 25 MG CAPSULE PO SCH ×2 (17:36→22:25)
[2023-01-15] MEDS: THIAMINE HCL 100 MG TABLET (FP) PO SCH (22:25)
[2023-01-15] MEDS: MELATONIN 5 MG TABLETS PO SCH (22:25)
[2023-01-16] MEDS: chlordiazePOXIDE HCL 25 MG CAPSULE PO SCH ×4 (05:40→22:22)
[2023-01-16] MEDS: NICOTINE 14 MG/24 HOURS TOPICAL PATCH TD SCH (10:37)
[2023-01-16] MEDS: PRENATAL VITAMINS W/ FOLIC ACID TABLET (FP) PO SCH (10:38)
[2023-01-16 11:29] LABS: POTASSIUM 4.4 mmol/L (3.5-5.1)
[2023-01-16 11:31] LABS: ALBUMIN 3.2 g/dl (3.4-5.0); BLOOD UREA NITROGEN 21.6 mg/dL (7-18); CALCIUM 8.6 mg/dL (8.5-10.1)
[2023-01-16 11:34] LABS: CREATININE 1.3 mg/dL (0.55-1.3)
[2023-01-16 11:36] LABS: BILIRUBIN,TOTAL 0.2 mg/dL (0.2-1); TOT PROT 6.2 g/dl (6.4-8.2)
[2023-01-16 11:38] LABS: HEMATOCRIT 36.7 % (35.4-49); HEMOGLOBIN 11.8 GM/dL (11.7-16.9); MCH 26.5 pg (25.7-33.7); MCHC 32.2 g/dl (32.0-35.9); MEAN CELL VOLUME 82.3 fl (80-96); MEAN PLT VOLUME 8.9 fl (7.5-11.1); PLATELET COUNT 258 10^3/uL (134-434); RBC 4.46 M/mm3 (4.00-5.60); RDW 16.3 % (11.9-15.9); WHITE BLOOD COUNT 4.6 K/mm3 (4.0-10.0)
[2023-01-16] MEDS: THIAMINE HCL 100 MG TABLET (FP) PO SCH (22:24)
[2023-01-16] MEDS: MELATONIN 5 MG TABLETS PO SCH (22:24)
[2023-01-17] MEDS: chlordiazePOXIDE HCL 25 MG CAPSULE PO SCH ×4 (06:09→22:14)
[2023-01-17] MEDS: PRENATAL VITAMINS W/ FOLIC ACID TABLET (FP) PO SCH (10:31)
[2023-01-17] MEDS: VENLAFAXINE HCL 37.5 MG E.R. CAPSULE PO SCH (10:31)
[2023-01-17] MEDS: NICOTINE 14 MG/24 HOURS TOPICAL PATCH TD SCH (10:31)
[2023-01-17] MEDS: ARIPiprazole 5 MG TABLET PO SCH (10:31)
[2023-01-17] MEDS: THIAMINE HCL 100 MG TABLET (FP) PO SCH (22:13)
[2023-01-17] MEDS: MELATONIN 5 MG TABLETS PO SCH (22:13)
[2023-01-18] MEDS ORDERED: chlordiazePOXIDE HCL 10 MG CAPSULE PO PRN
[2023-01-18] MEDS: chlordiazePOXIDE HCL 10 MG CAPSULE PO SCH ×4 (05:59→22:23)
[2023-01-18] MEDS: ARIPiprazole 5 MG TABLET PO SCH (10:59)
[2023-01-18] MEDS: NICOTINE 14 MG/24 HOURS TOPICAL PATCH TD SCH (11:00)
[2023-01-18] MEDS: VENLAFAXINE HCL 37.5 MG E.R. CAPSULE PO SCH (11:00)
[2023-01-18] MEDS: PRENATAL VITAMINS W/ FOLIC ACID TABLET (FP) PO SCH (11:00)
[2023-01-18] MEDS: MELATONIN 5 MG TABLETS PO SCH (22:22)
[2023-01-18] MEDS: THIAMINE HCL 100 MG TABLET (FP) PO SCH (22:23)
[2023-01-19] MEDS ORDERED: chlordiazePOXIDE HCL 10 MG CAPSULE PO SCH (05:00)
[2023-01-19 06:28] VITALS: TEMP 98
[2023-01-19 09:37] VITALS: BP 130/80; PULSE 67; RESP 18
[2023-01-20] MEDS ORDERED: chlordiazePOXIDE HCL 10 MG CAPSULE PO ONE (05:00)
== END 2023-01-19 09:20 | disposition home or self-care (01) | DRG 774 ==
LOC: YASAS 11:43 → Y3N 15:15
PROVIDERS: ADMIT Allergy & Immunology; ATTEND Allergy & Immunology
PROC: HZ2ZZZZ Detoxification Services for Substance Abuse Treatment (ICD-10-PCS; principal; 2023-01-15)
DX: F10.230 Alcohol dependence with withdrawal, uncomplicated (principal); F14.20 Cocaine dependence, uncomplicated; F17.210 Nicotine dependence, cigarettes, uncomplicated; F31.9 Bipolar disorder, unspecified; F20.9 Schizophrenia, unspecified; F19.24 Other psychoactive substance dependence with psychoactive substance-induced mood disorder; J44.9 Chronic obstructive pulmonary disease, unspecified; Z85.46 Personal history of malignant neoplasm of prostate; Z90.79 Acquired absence of other genital organ(s); Z88.1 Allergy status to other antibiotic agents; Z91.013 Allergy to seafood; Z91.199 Patient's noncompliance with other medical treatment and regimen due to unspecified reason
CPT/HCPCS: 36415; 80053; 85027; 86593; 86780; 87635; 87811

== ENCOUNTER 2023-03-31 10:32 | Inpatient (IN) | payer OTHER ==
[2023-03-31 12:04] VITALS: BMI 21.2
[2023-03-31] MEDS ORDERED: IBUPROFEN 400 MG TABLET (FP) PO PRN (12:24)
[2023-03-31] MEDS ORDERED: ONDANSETRON *ODT* 4 MG TABLET SL PRN (12:24)
[2023-03-31] MEDS ORDERED: IBUPROFEN 600 MG TABLET (FP) PO PRN (12:24)
[2023-03-31] MEDS ORDERED: LOPERAMIDE HCL 2 MG CAPSULE PO PRN (12:24)
[2023-03-31] MEDS ORDERED: NICOTINE POLACRILEX 2 MG GUM BUC PRN (12:24)
[2023-03-31] MEDS ORDERED: guaiFENesin 600 MG TABLET.ER (FP) PO PRN (12:24)
[2023-03-31] MEDS ORDERED: hydrOXYzine PAMOATE 25 MG CAPSULE (FP) PO PRN (12:24)
[2023-03-31] MEDS ORDERED: POLYETHYLENE GLYCOL (HEALTHYLAX) 3350 17 GM PACKET PO PRN (12:24)
[2023-03-31] MEDS ORDERED: BENZOCAINE/MENTHOL (CHLORASEPTIC ) LOZENGE MM PRN (12:24)
[2023-03-31] MEDS ORDERED: MAGNESIUM HYDROX 2400MG/30ML ORAL SUSPENSION 30 ML CUP PO PRN (12:24)
[2023-03-31] MEDS ORDERED: ACETAMINOPHEN 325 MG TABLET (FP) PO PRN (12:24)
[2023-03-31] MEDS ORDERED: NALOXONE HCL 0.4 MG/ML VIAL IM PRN (12:24)
[2023-03-31] MEDS ORDERED: NALOXONE HCL (KLOXXADO) 8 MG SPRAY NS PRN (12:24)
[2023-03-31] MEDS ORDERED: METHOCARBAMOL 500 MG TABLET PO PRN (12:24)
[2023-03-31] MEDS ORDERED: BISMUTH SUBSALICYLATE 262 MG/15 ML BTL PO PRN (12:24)
[2023-03-31] MEDS ORDERED: BENZONATATE 200 MG CAPSULE PO PRN (12:24)
[2023-03-31] MEDS ORDERED: MAG HYDROX/AL HYDROX/SIMETH 30 ML UNIT-DOSE CUP PO PRN (12:24)
[2023-03-31] MEDS: THIAMINE HCL 100 MG TABLET (FP) PO SCH (22:26)
[2023-03-31] MEDS: MELATONIN 5 MG TABLETS PO SCH (22:26)
[2023-04-01] MEDS: NICOTINE 14 MG/24 HOURS TOPICAL PATCH TD SCH (09:44)
[2023-04-01] MEDS: PRENATAL VITAMINS W/ FOLIC ACID TABLET (FP) PO SCH (09:44)
[2023-04-01] MEDS ORDERED: diazePAM 5 MG TABLET PO PRN (10:32)
[2023-04-01] MEDS: diazePAM 5 MG TABLET PO SCH ×3 (11:26→22:11)
[2023-04-01 11:54] LABS: POTASSIUM 4.2 mmol/L (3.5-5.1)
[2023-04-01 11:57] LABS: HEMATOCRIT 35.5 % (35.4-49); HEMOGLOBIN 11.8 GM/dL (11.7-16.9); MCH 26.6 pg (25.7-33.7); MCHC 33.3 g/dl (32.0-35.9); MEAN CELL VOLUME 79.7 fl (80-96); MEAN PLT VOLUME 9.4 fl (7.5-11.1); PLATELET COUNT 243 10^3/uL (134-434); RBC 4.46 M/mm3 (4.00-5.60); RDW 14.7 % (11.9-15.9); WHITE BLOOD COUNT 5.2 K/mm3 (4.0-10.0)
[2023-04-01 12:23] LABS: CALCIUM 8.5 mg/dL (8.5-10.1)
[2023-04-01 12:24] LABS: ALBUMIN 3.6 g/dl (3.4-5.0); BLOOD UREA NITROGEN 33.9 mg/dL (7-18)
[2023-04-01 12:27] LABS: BILIRUBIN,TOTAL 0.2 mg/dL (0.2-1); CREATININE 1.4 mg/dL (0.55-1.3); TOT PROT 6.7 g/dl (6.4-8.2)
[2023-04-01] MEDS: MELATONIN 5 MG TABLETS PO SCH (22:11)
[2023-04-01] MEDS: THIAMINE HCL 100 MG TABLET (FP) PO SCH (22:11)
[2023-04-02] MEDS: diazePAM 5 MG TABLET PO SCH ×4 (05:38→22:56)
[2023-04-02] MEDS: VENLAFAXINE HCL 37.5 MG TABLET PO SCH (10:34)
[2023-04-02] MEDS: NICOTINE 14 MG/24 HOURS TOPICAL PATCH TD SCH (10:34)
[2023-04-02] MEDS: ARIPiprazole 5 MG TABLET PO SCH (10:34)
[2023-04-02] MEDS: PRENATAL VITAMINS W/ FOLIC ACID TABLET (FP) PO SCH (10:34)
[2023-04-02] MEDS: THIAMINE HCL 100 MG TABLET (FP) PO SCH (22:56)
[2023-04-02] MEDS: MELATONIN 5 MG TABLETS PO SCH (22:56)
[2023-04-03] MEDS: diazePAM 5 MG TABLET PO SCH ×3 (05:18→23:47)
[2023-04-03] MEDS: PRENATAL VITAMINS W/ FOLIC ACID TABLET (FP) PO SCH (10:27)
[2023-04-03] MEDS: NICOTINE 14 MG/24 HOURS TOPICAL PATCH TD SCH (10:27)
[2023-04-03] MEDS: ARIPiprazole 5 MG TABLET PO SCH (10:27)
[2023-04-03] MEDS: VENLAFAXINE HCL 37.5 MG TABLET PO SCH (10:27)
[2023-04-03 12:35] LABS: BLOOD UREA NITROGEN 21.8 mg/dL (7-18)
[2023-04-03 12:38] LABS: CREATININE 1.2 mg/dL (0.55-1.3)
[2023-04-03] MEDS: THIAMINE HCL 100 MG TABLET (FP) PO SCH (23:47)
[2023-04-03] MEDS: MELATONIN 5 MG TABLETS PO SCH (23:47)
[2023-04-04] MEDS: diazePAM 5 MG TABLET PO SCH ×2 (05:15→19:16)
[2023-04-04] MEDS: ARIPiprazole 5 MG TABLET PO SCH ×2 (10:43→10:48)
[2023-04-04] MEDS: VENLAFAXINE HCL 37.5 MG TABLET PO SCH ×2 (10:43→10:47)
[2023-04-04] MEDS: NICOTINE 14 MG/24 HOURS TOPICAL PATCH TD SCH (10:44)
[2023-04-04] MEDS: PRENATAL VITAMINS W/ FOLIC ACID TABLET (FP) PO SCH ×2 (10:44→10:47)
[2023-04-04] MEDS: THIAMINE HCL 100 MG TABLET (FP) PO SCH (22:42)
[2023-04-04] MEDS: MELATONIN 5 MG TABLETS PO SCH (22:42)
[2023-04-05] MEDS ORDERED: diazePAM 5 MG TABLET PO ONE (06:00)
[2023-04-05 09:02] VITALS: BP 123/78; PULSE 63; RESP 18; TEMP 97.9
[2023-04-05] MEDS: ARIPiprazole 5 MG TABLET PO SCH (10:33)
[2023-04-05] MEDS: NICOTINE 14 MG/24 HOURS TOPICAL PATCH TD SCH (10:33)
[2023-04-05] MEDS: PRENATAL VITAMINS W/ FOLIC ACID TABLET (FP) PO SCH (10:33)
[2023-04-05] MEDS: VENLAFAXINE HCL 37.5 MG TABLET PO SCH (10:33)
== END 2023-04-05 11:21 | disposition other institution (70) | DRG 774 ==
LOC: YASAS 10:32 → Y3N 13:29
PROVIDERS: ADMIT Allergy & Immunology; ATTEND Surgery
PROC: HZ2ZZZZ Detoxification Services for Substance Abuse Treatment (ICD-10-PCS; principal; 2023-03-31)
DX: F10.230 Alcohol dependence with withdrawal, uncomplicated (principal); F14.20 Cocaine dependence, uncomplicated; F12.20 Cannabis dependence, uncomplicated; F17.210 Nicotine dependence, cigarettes, uncomplicated; F31.9 Bipolar disorder, unspecified; F19.24 Other psychoactive substance dependence with psychoactive substance-induced mood disorder; R74.01 Elevation of levels of liver transaminase levels; Z85.46 Personal history of malignant neoplasm of prostate; Z90.79 Acquired absence of other genital organ(s); Z87.09 Personal history of other diseases of the respiratory system; Z86.19 Personal history of other infectious and parasitic diseases; Z88.1 Allergy status to other antibiotic agents
CPT/HCPCS: 36415; 80053; 80307; 82565; 84520; 85027; 86593; 86780; 87635; 87811; 93005; 93010

== ENCOUNTER 2023-10-22 09:33 | Inpatient (IN) | payer OTHER ==
[2023-10-22 10:25] VITALS: BMI 22.5
[2023-10-22] MEDS ORDERED: BENZOCAINE/MENTHOL (CHLORASEPTIC ) LOZENGE MM PRN (10:55)
[2023-10-22] MEDS ORDERED: METHOCARBAMOL 500 MG TABLET PO PRN (10:55)
[2023-10-22] MEDS ORDERED: MAGNESIUM HYDROX 2400MG/30ML ORAL SUSPENSION 30 ML CUP PO PRN (10:55)
[2023-10-22] MEDS ORDERED: guaiFENesin 600 MG TABLET.ER (FP) PO PRN (10:55)
[2023-10-22] MEDS ORDERED: ACETAMINOPHEN 325 MG TABLET (FP) PO PRN (10:55)
[2023-10-22] MEDS ORDERED: POLYETHYLENE GLYCOL (HEALTHYLAX) 3350 17 GM PACKET PO PRN (10:55)
[2023-10-22] MEDS ORDERED: BENZONATATE 200 MG CAPSULE PO PRN (10:55)
[2023-10-22] MEDS ORDERED: NICOTINE POLACRILEX 4 MG GUM BUC PRN (10:55)
[2023-10-22] MEDS ORDERED: IBUPROFEN 600 MG TABLET (FP) PO PRN (10:55)
[2023-10-22] MEDS ORDERED: DICYCLOMINE HCL 10 MG CAPSULE PO PRN (10:55)
[2023-10-22] MEDS ORDERED: IBUPROFEN 400 MG TABLET (FP) PO PRN (10:55)
[2023-10-22] MEDS ORDERED: LOPERAMIDE HCL 2 MG CAPSULE PO PRN (10:55)
[2023-10-22] MEDS ORDERED: chlordiazePOXIDE HCL 25 MG CAPSULE PO PRN (10:55)
[2023-10-22] MEDS ORDERED: hydrOXYzine PAMOATE 25 MG CAPSULE (FP) PO PRN (10:55)
[2023-10-22] MEDS ORDERED: NALOXONE HCL (KLOXXADO) 8 MG SPRAY NS PRN (10:55)
[2023-10-22] MEDS ORDERED: NALOXONE HCL 0.4 MG/ML VIAL IM PRN (10:55)
[2023-10-22] MEDS ORDERED: MAG HYDROX/AL HYDROX/SIMETH 30 ML UNIT-DOSE CUP PO PRN (10:55)
[2023-10-22] MEDS ORDERED: BISMUTH SUBSALICYLATE 262 MG/15 ML BTL PO PRN (10:55)
[2023-10-22] MEDS ORDERED: chlordiazePOXIDE HCL 25 MG CAPSULE ONE (11:30)
[2023-10-22] MEDS: chlordiazePOXIDE HCL 25 MG CAPSULE PO SCH (11:33)
[2023-10-22] MEDS: MELATONIN 5 MG TABLETS PO SCH (23:28)
[2023-10-22] MEDS: THIAMINE 100 MG TABLET PO SCH (23:28)
[2023-10-23] MEDS: PRENATAL VITAMINS W/ FOLIC ACID TABLET (FP) PO SCH (10:07)
[2023-10-23] MEDS: ARIPiprazole 5 MG TABLET PO SCH (11:08)
[2023-10-23] MEDS ORDERED: diazePAM 5 MG TABLET PO PRN (19:14)
[2023-10-23] MEDS: diazePAM 5 MG TABLET PO SCH (22:23)
[2023-10-24] MEDS ORDERED: chlordiazePOXIDE HCL 25 MG CAPSULE PO SCH (05:00)
[2023-10-24] MEDS: diazePAM 5 MG TABLET PO SCH (06:13)
[2023-10-24 08:50] VITALS: RESP 18
[2023-10-24 11:26] LABS: POTASSIUM 3.6 mmol/L (3.5-5.1)
[2023-10-24 11:28] LABS: HEMATOCRIT 35.9 % (35.4-49); HEMOGLOBIN 11.5 GM/dL (11.7-16.9); MCHC 32.1 g/dl (32.0-35.9); MEAN CELL VOLUME 80.9 fl (80-96); MEAN PLT VOLUME 8.4 fl (7.5-11.1); PLATELET COUNT 274 10^3/uL (134-434); RBC 4.44 M/mm3 (4.00-5.60); RDW 15.8 % (11.9-15.9); WHITE BLOOD COUNT 6.7 K/mm3 (4.0-10.0)
[2023-10-24 11:34] LABS: CALCIUM 8.6 mg/dL (8.5-10.1)
[2023-10-24 11:35] LABS: ALBUMIN 3.2 g/dl (3.4-5.0); BLOOD UREA NITROGEN 16.6 mg/dL (7-18)
[2023-10-24 11:36] LABS: HEMATOCRIT 35.6 % (35.4-49); HEMOGLOBIN 11.5 GM/dL (11.7-16.9); MCH 26.2 pg (25.7-33.7); MCHC 32.3 g/dl (32.0-35.9); MEAN PLT VOLUME 8.5 fl (7.5-11.1); PLATELET COUNT 293 10^3/uL (134-434); RDW 16.1 % (11.9-15.9); WHITE BLOOD COUNT 6.7 K/mm3 (4.0-10.0)
[2023-10-24 11:38] LABS: CREATININE 1.3 mg/dL (0.55-1.3)
[2023-10-24 11:40] LABS: BILIRUBIN,TOTAL 0.4 mg/dL (0.2-1); TOT PROT 6.8 g/dl (6.4-8.2)
[2023-10-24 12:43] VITALS: BP 139/89; PULSE 84; TEMP 98
[2023-10-24] MEDS: ONDANSETRON *ODT* 4 MG TABLET SL PRN (13:13)
[2023-10-24 15:21] LABS: ANISOCYTOSIS 0; MACROCYTOSIS 0
[2023-10-25] MEDS ORDERED: chlordiazePOXIDE HCL 10 MG CAPSULE PO PRN
[2023-10-25] MEDS ORDERED: chlordiazePOXIDE HCL 10 MG CAPSULE PO SCH (05:00)
[2023-10-25] MEDS ORDERED: diazePAM 5 MG TABLET PO SCH (06:00)
[2023-10-26] MEDS ORDERED: chlordiazePOXIDE HCL 10 MG CAPSULE PO SCH (05:00)
[2023-10-26] MEDS ORDERED: diazePAM 5 MG TABLET PO ONE (06:00)
[2023-10-27] MEDS ORDERED: chlordiazePOXIDE HCL 10 MG CAPSULE PO ONE (05:00)
== END 2023-10-24 15:40 | disposition left against medical advice (07) | DRG 770 ==
LOC: YASAS 09:33 → Y6N 11:44
PROVIDERS: ADMIT Allergy & Immunology; ATTEND Surgery
PROC: HZ2ZZZZ Detoxification Services for Substance Abuse Treatment (ICD-10-PCS; principal; 2023-10-22)
DX: F10.230 Alcohol dependence with withdrawal, uncomplicated (principal); F14.20 Cocaine dependence, uncomplicated; F12.20 Cannabis dependence, uncomplicated; F17.210 Nicotine dependence, cigarettes, uncomplicated; F31.9 Bipolar disorder, unspecified; F19.24 Other psychoactive substance dependence with psychoactive substance-induced mood disorder; F91.8 Other conduct disorders; Z91.199 Patient's noncompliance with other medical treatment and regimen due to unspecified reason; Z88.1 Allergy status to other antibiotic agents; Z85.46 Personal history of malignant neoplasm of prostate; Z90.79 Acquired absence of other genital organ(s)
CPT/HCPCS: 36415; 80048; 80053; 80305; 80307; 85025; 85027; 86593; 86780; 93005; 93010; Q0162